=== PATIENT | male | born 1950 | race Caucasian/White ===

== ENCOUNTER 2019-03-18 22:21 | Inpatient (IN) | payer MEDICARE ==
[~2019-03-18] VITALS: Ht 188 cm; Wt 99.5 kg
[2019-03-18 23:10] LABS: BASO % 0 % (0-3); EOS % 0 % (0-3); HEMATOCRIT 49.6 % (39.0-53.0); HEMOGLOBIN 17.1 g/dL (13.0-17.5); LYMPH # 1.2 x10^3/uL (1.0-4.8); LYMPH % 9 % (24-48); MEAN CORPUSCULAR HEMOGLOBIN 32 pg (25-35); MEAN CORPUSCULAR HGB CONC 35 g/dL (31-37); MEAN CORPUSCULAR VOLUME 92 fL (79-100); MONO # 1.5 x10^3/uL (0.0-1.1); MONO % 12 % (0-9); NEUT # 9.9 x10^3/uL (1.8-7.7); NEUT % 78 % (31-73); PLATELET COUNT 172 x10^3/uL (140-400); RED CELL DISTRIBUTION WIDTH 13.1 % (11.5-14.5); WHITE BLOOD COUNT 12.6 x10^3/uL (4.0-11.0)
[2019-03-18 23:19] LABS: CALCIUM 9.5 mg/dL (8.5-10.1); CREATININE 1.1 mg/dL (0.7-1.3); GFR 66.2; POTASSIUM 4.5 mmol/L (3.5-5.1)
[2019-03-18 23:25] LABS: ALBUMIN/GLOBULIN RATIO 0.9 (1.0-1.7); TOTAL PROTEIN 8.4 g/dL (6.4-8.2)
[2019-03-19] MEDS ORDERED: LIDO:MAALOX 1:1 20 ML SINGLE DOSE. SWSW ONE
[2019-03-19] MEDS ORDERED: FAMOTIDINE 20 MG/2 ML VIAL IVP ONE
--- NOTE | 2019-03-19 00:01 | PHYS DOC ---
Adult General Chief Complaint Chief Complaint: CHEST PAIN HPI HPI Patient is a 69 year old male presents with epigastric pain/burning radiating to bilateral shoulders and back of neck. Symptom onset was 16 hours prior to ED arrival. Patient reports mild dyspnea and nausea. Denies abdominal pain.. Chest pressure and dyspnea her mildly improved by leaning forward and worse with exertion. Patient took Tums with Pepto-Bismol without relief. Denies back pain, cough, fever chills, vomiting, sweats. No leg pain or swelling. No other acute symptoms or complaints.[] Review of Systems Review of Systems Review symptoms reviewed. All other review symptoms are negative. All other systems were reviewed and found to be within normal limits, except as documented in this note. Current Medications Current Medications Current Medications Medications (Trade) Dose Ordered Sig/Gabriel Start Time Stop Time Status Last Admin Dose Admin Famotidine (Pepcid Vial) 20 mg 1X ONCE 03/19/19 00:00 03/19/19 00:01 DC 03/19/19 00:24 20 MG Multi-Ingredient Mouthwash/Gargle (Gi Cocktail) 20 ml 1X ONCE 03/19/19 00:00 03/19/19 00:01 DC 03/19/19 00:23 20 ML Nitroglycerin (Nitrostat) 0.4 mg PRN Q5MIN PRN 03/19/19 00:45 03/19/19 00:44 0.4 MG Ondansetron HCl (Zofran) 4 mg STK-MED ONCE 03/19/19 01:08 03/19/19 01:09 MS Allergies Allergies Allergies Coded Allergies Type Severity Reaction Last Updated Verified No Known Drug Allergies 03/18/19 No Physical Exam Physical Exam Constitutional: Well developed, well nourished, no acute distress, non-toxic appearance. [] HENT: Normocephalic, atraumatic, bilateral external ears normal, oropharynx moist, no oral exudates, nose normal. [] Eyes: PERRLA, EOMI, conjunctiva normal, no discharge. [] Neck: Normal range of motion, no tenderness, supple, no stridor. [] Cardiovascular:Heart rate regular rhythm, no murmur [] Lungs & Thorax: Bilateral breath sounds clear to auscultation [] Abdomen: Bowel sounds normal, soft, no tenderness. [] Skin: Warm, dry, no erythema, no rash. [] Back: No tenderness, no CVA tenderness. [] Extremities: No tenderness, no cyanosis, no clubbing, ROM intact, no edema. [] Neurologic: Alert and oriented X 3, normal motor function, normal sensory function, no focal deficits noted. [] Psychologic: Affect normal, judgement normal, mood normal. [] Current Patient Data Vital Signs Vital Signs Date Time Temp Pulse Resp B/P (MAP) Pulse Ox O2 Delivery O2 Flow Rate FiO2 03/19/19 00:44 99 137/89 03/18/19 22:25 98.7 18 98 Room Air 98.7 Lab Values Laboratory Tests Test 03/18/19 22:45 03/19/19 00:01 White Blood Count 12.6 x10^3/uL (4.0-11.0) H Red Blood Count 5.40 x10^6/uL (4.30-5.70) Hemoglobin 17.1 g/dL (13.0-17.5) Hematocrit 49.6 % (39.0-53.0) Mean Corpuscular Volume 92 fL (79-100) Mean Corpuscular Hemoglobin 32 pg (25-35) Mean Corpuscular Hemoglobin Concent 35 g/dL (31-37) Red Cell Distribution Width 13.1 % (11.5-14.5) Platelet Count 172 x10^3/uL (140-400) Neutrophils (%) (Auto) 78 % (31-73) H Lymphocytes (%) (Auto) 9 % (24-48) L Monocytes (%) (Auto) 12 % (0-9) H Eosinophils (%) (Auto) 0 % (0-3) Basophils (%) (Auto) 0 % (0-3) Neutrophils # (Auto) 9.9 x10^3/uL (1.8-7.7) H Lymphocytes # (Auto) 1.2 x10^3/uL (1.0-4.8) Monocytes # (Auto) 1.5 x10^3/uL (0.0-1.1) H Eosinophils # (Auto) 0.0 x10^3/uL (0.0-0.7) Basophils # (Auto) 0.0 x10^3/uL (0.0-0.2) Sodium Level 137 mmol/L (136-145) Potassium Level 4.5 mmol/L (3.5-5.1) Chloride Level 105 mmol/L (98-107) Carbon Dioxide Level 23 mmol/L (21-32) Anion Gap 9 (6-14) Blood Urea Nitrogen 14 mg/dL (8-26) Creatinine 1.1 mg/dL (0.7-1.3) Estimated GFR (Cockcroft-Gault) 66.2 BUN/Creatinine Ratio 13 (6-20) Glucose Level 115 mg/dL (70-99) H Calcium Level 9.5 mg/dL (8.5-10.1) Total Bilirubin 1.0 mg/dL (0.2-1.0) Aspartate Amino Transferase (AST) 33 U/L (15-37) Alanine Aminotransferase (ALT) 39 U/L (16-63) Alkaline Phosphatase 75 U/L (46-116) Troponin I Quantitative < 0.017 ng/mL (0.000-0.055) Total Protein 8.4 g/dL (6.4-8.2) H Albumin 4.0 g/dL (3.4-5.0) Albumin/Globulin Ratio 0.9 (1.0-1.7) L D-Dimer (Juana) 0.35 ug/mlFEU (0.00-0.50) Thyroid Stimulating Hormone (TSH) 1.961 uIU/mL (0.358-3.74) Laboratory Tests 03/18/19 22:45 Laboratory Tests 03/18/19 22:45 EKG EKG [EKG: Sinus tach, nonspecific ST-T wave changes, QTC 414.] Radiology/Procedures Radiology/Procedures [Chest x-ray: No acute cardiopulmonary disease on pulmonary ED review] Course & Med Decision Making Course & Med Decision Making Pertinent Labs and Imaging studies reviewed. (See chart for details) [Atypical chest pain. EKG, Labs, imaging reviewed. No relief with GI cocktail, near complete relief with glycerin. Full strength ASA CLOTH COLORER. Troponin negative. Will admit to hospital further evaluation and monitoring] Dragon Disclaimer Dragon Disclaimer This electronic medical record was generated, in whole or in part, using a voice recognition dictation system. Departure Departure Impression: Primary Impression: Chest pain Disposition: ADMITTED INPATIENT Admitting Physician: Ed Hoang Condition: IMPROVED Referrals: ED HOANG MD (PCP) MARBELLA OLIVARES DO Mar 19, 2019 00:01
[2019-03-19] MEDS ORDERED: NITROGLYCERIN SUBLINGUAL 0.4 MG BOTTLE OF 25. SL PRN ×2 (00:45→01:30)
[2019-03-19] MEDS ORDERED: ONDANSETRON PF 4 MG/2 ML VIAL. ONE (01:08)
[2019-03-19] MEDS ORDERED: ONDANSETRON PF 4 MG/2 ML VIAL. IV ONE (01:15)
[2019-03-19] MEDS ORDERED: ONDANSETRON PF 4 MG/2 ML VIAL. IV PRN ×2 (01:30→09:00)
--- NOTE | 2019-03-19 01:55 | RAD ---
AP portable chest radiograph 03/19/2019 Clinical History: Chest pain. An AP erect portable digital radiograph of the chest was obtained. No previous studies are available for comparison. The cardiac silhouette is mildly enlarged. The thoracic aorta is tortuous. No acute pulmonary infiltrate is seen. No pleural effusion or pneumothorax is noted. Degenerative changes are seen involving the thoracic spine and both shoulders. IMPRESSION: No acute abnormality is seen. Electronically signed by: Yovany Randle MD (03/19/2019 1:52 AM) [facility]
--- NOTE | 2019-03-19 02:30 | NUR ---
The patient, PARKER POOLE, 69 y/o, M admitted by ED HOANG MD, was given written information regarding hospital policies, unit procedures and contact persons. ORIENTED TO POC, WENT OVER HOME MEDS. ALL OVER THE COUNTER. BOOKLET GIVEN TO PT, WENT OVER HOUSESMITH SHEET AND MED SHE WITH ADVERS REACTIONS. Valuables were checked and IN EMR. [facility]
[2019-03-19 03:00] VITALS: BP 119/87
[2019-03-19 07:00] VITALS: BP 132/85
[2019-03-19] MEDS: FAMOTIDINE 20 MG/2 ML VIAL IVP SCH ×2 (09:00→21:54)
[2019-03-19 11:00] VITALS: BP 125/80
--- NOTE | 2019-03-19 11:58 | EKG ---
[facility] [address] [place] [address] Test Date: 2019-03-18 Test Time: 22:30:07 Pat Name: PARKER POOLE Department: Room: Gender: M Recreation Establishment Manager: : 1950 Requested By: MARBELLA OLIVARES Order Number: [id number] Reading MD: Measurements Intervals [place] Rate: 111 P: 31 MO: 136 QRS: -3 QRSD: 84 T: 21 QT: 302 QTc: 413 Interpretive Statements SINUS TACHYCARDIA LEFTWARD AXIS QRS(T) CONTOUR ABNORMALITY CONSISTENT WITH INFERIOR INFARCT PROBABLY OLD ABNORMAL ECG No previous ECG available for comparison
--- NOTE | 2019-03-19 12:51 | PDOC ---
Provider Note Provider Note Patient seen. Combined History and Physical and discharge summary dictated. See dictation#[id number] DE HOANG MD Mar 19, 2019 12:51
--- NOTE | 2019-03-19 12:53 | DISCH ---
DISCHARGE INSTRUCTIONS Condition on Discharge Condition on Discharge: Stable Activity After Discharge Activity Instructions for Disc: No restrictions Diet after Discharge Diet after Discharge: Regular Contacting the DRBernardo after DC Call your doctor for: Concerns you may have Follow-Up Follow up with: Dr. ED Hoang in 5 days ED HOANG MD Mar 19, 2019 12:52
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
[2019-03-19 15:00] VITALS: BP 121/79
[2019-03-19 19:33] VITALS: BP 121/81
[2019-03-19 23:00] VITALS: BP 118/77
[2019-03-20 03:57] LABS: BASO % 0 % (0-3); EOS # 0.1 x10^3/uL (0.0-0.7); EOS % 1 % (0-3); HEMATOCRIT 46.3 % (39.0-53.0); HEMOGLOBIN 16.1 g/dL (13.0-17.5); LYMPH # 2.1 x10^3/uL (1.0-4.8); LYMPH % 20 % (24-48); MEAN CORPUSCULAR HEMOGLOBIN 32 pg (25-35); MEAN CORPUSCULAR HGB CONC 35 g/dL (31-37); MEAN CORPUSCULAR VOLUME 93 fL (79-100); MONO # 1.3 x10^3/uL (0.0-1.1); MONO % 13 % (0-9); NEUT # 6.8 x10^3/uL (1.8-7.7); NEUT % 66 % (31-73); PLATELET COUNT 150 x10^3/uL (140-400); RED BLOOD COUNT 5.01 x10^6/uL (4.30-5.70); RED CELL DISTRIBUTION WIDTH 13.1 % (11.5-14.5); WHITE BLOOD COUNT 10.3 x10^3/uL (4.0-11.0)
[2019-03-20 04:15] LABS: CALCIUM 8.9 mg/dL (8.5-10.1); CREATININE 1.1 mg/dL (0.7-1.3); GFR 66.2
[2019-03-20 07:00] VITALS: BP 131/86
[2019-03-20] MEDS: FAMOTIDINE 20 MG/2 ML VIAL IVP SCH (09:10)
--- NOTE | 2019-03-20 10:13 | PDOC ---
IM PROGRESS NOTES- Subjective Subjective No complaints of chest pains, palpitations or dyspnea. Has occasional shoulder pain. When patient was urinating this morning he had an episode of her cardiac arrhythmia with a heart rate of 175-1 80/m for about 2 minutes. Patient was asymptomatic. Objective Vitals/I&O Vital Signs Date Time Temp Pulse Resp B/P (MAP) Pulse Ox O2 Delivery O2 Flow Rate FiO2 03/20/19 07:00 96.8 80 16 131/86 (101) 94 Room Air 96.8 I & O 03/19/19 03/19/19 03/20/19 15:00 23:00 07:00 Intake Total 480 ml Output Total 450 ml 1300 ml Balance -450 ml 480 ml -1300 ml Physical Exam Physical Exam General appearance - alert,well appearing, and in no distress and oriented to person, place, and time Mental Status - alert, oriented to person, place, and time, affect appropriate to mood Head - normal Chest - clear to auscultation, no wheezes, rales or rhonchi, symmetric air entry Heart - S1 and S2 normal Abdomen - soft, nontender, nondistended, no masses or organomegaly Neurological - alert and oriented Musculoskeletal - no muscular tenderness noted Extremities - no pedal edema Skin - warm and dry Labs Laboratory Tests Test 03/20/19 03:40 White Blood Count 10.3 x10^3/uL (4.0-11.0) Red Blood Count 5.01 x10^6/uL (4.30-5.70) Hemoglobin 16.1 g/dL (13.0-17.5) Hematocrit 46.3 % (39.0-53.0) Mean Corpuscular Volume 93 fL (79-100) Mean Corpuscular Hemoglobin 32 pg (25-35) Mean Corpuscular Hemoglobin Concent 35 g/dL (31-37) Red Cell Distribution Width 13.1 % (11.5-14.5) Platelet Count 150 x10^3/uL (140-400) Neutrophils (%) (Auto) 66 % (31-73) Lymphocytes (%) (Auto) 20 % (24-48) L Monocytes (%) (Auto) 13 % (0-9) H Eosinophils (%) (Auto) 1 % (0-3) Basophils (%) (Auto) 0 % (0-3) Neutrophils # (Auto) 6.8 x10^3/uL (1.8-7.7) Lymphocytes # (Auto) 2.1 x10^3/uL (1.0-4.8) Monocytes # (Auto) 1.3 x10^3/uL (0.0-1.1) H Eosinophils # (Auto) 0.1 x10^3/uL (0.0-0.7) Basophils # (Auto) 0.0 x10^3/uL (0.0-0.2) Sodium Level 137 mmol/L (136-145) Potassium Level 4.0 mmol/L (3.5-5.1) Chloride Level 103 mmol/L (98-107) Carbon Dioxide Level 23 mmol/L (21-32) Anion Gap 11 (6-14) Blood Urea Nitrogen 13 mg/dL (8-26) Creatinine 1.1 mg/dL (0.7-1.3) Estimated GFR (Cockcroft-Gault) 66.2 Glucose Level 115 mg/dL (70-99) H Calcium Level 8.9 mg/dL (8.5-10.1) Laboratory Tests 03/20/19 03:40 Laboratory Tests 03/20/19 03:40 Assessment Assessment 1. Chest pain, musculoskeletal. 2. Leukocytosis, etiology not clear. The patient also had low-grade fever, but clinically, no evidence of infection. We will continue to monitor. The patient was observed in telemetry unit. Serial EKG and enzymes are negative so far. Heel Caser has been consulted. The patient was kept n.p.o. to see if there would be any further cardiac workup. The patient was not discharged yesterday. Staff will check with the opto mechanical technician about the plans for today. Patient is nothing by mouth for possible stress test. Cardiac arrhythmia monitor. Staff will call me with the further plans after the opto mechanical technician makes rounds. Plan Plan For more details regarding further plans, please refer to the orders. ED HOANG MD Mar 20, 2019 10:13
--- NOTE | 2019-03-20 10:50 | PDOC ---
CARDIO Progress Notes Date and Time Date of Service 03/20/19 Time of Evaluation 1045 Subjective Subjective: No Chest Pain, No shortness of breath Vitals Vitals Vital Signs Date Time Temp Pulse Resp B/P (MAP) Pulse Ox O2 Delivery O2 Flow Rate FiO2 03/20/19 07:00 96.8 80 16 131/86 (101) 94 Room Air 96.8 Weight Weight [ ] Input and Output Intake and Output Intake and Output 03/20/19 06:59 Intake Total 480 ml Output Total 1750 ml Balance -1270 ml Intake Oral 480 ml Output Urine Total 1750 ml Laboratory Labs Laboratory Tests Test 03/20/19 03:40 White Blood Count 10.3 x10^3/uL (4.0-11.0) Red Blood Count 5.01 x10^6/uL (4.30-5.70) Hemoglobin 16.1 g/dL (13.0-17.5) Hematocrit 46.3 % (39.0-53.0) Mean Corpuscular Volume 93 fL (79-100) Mean Corpuscular Hemoglobin 32 pg (25-35) Mean Corpuscular Hemoglobin Concent 35 g/dL (31-37) Red Cell Distribution Width 13.1 % (11.5-14.5) Platelet Count 150 x10^3/uL (140-400) Neutrophils (%) (Auto) 66 % (31-73) Lymphocytes (%) (Auto) 20 % (24-48) Monocytes (%) (Auto) 13 % (0-9) Eosinophils (%) (Auto) 1 % (0-3) Basophils (%) (Auto) 0 % (0-3) Neutrophils # (Auto) 6.8 x10^3/uL (1.8-7.7) Lymphocytes # (Auto) 2.1 x10^3/uL (1.0-4.8) Monocytes # (Auto) 1.3 x10^3/uL (0.0-1.1) Eosinophils # (Auto) 0.1 x10^3/uL (0.0-0.7) Basophils # (Auto) 0.0 x10^3/uL (0.0-0.2) Sodium Level 137 mmol/L (136-145) Potassium Level 4.0 mmol/L (3.5-5.1) Chloride Level 103 mmol/L (98-107) Carbon Dioxide Level 23 mmol/L (21-32) Anion Gap 11 (6-14) Blood Urea Nitrogen 13 mg/dL (8-26) Creatinine 1.1 mg/dL (0.7-1.3) Estimated GFR (Cockcroft-Gault) 66.2 Glucose Level 115 mg/dL (70-99) Calcium Level 8.9 mg/dL (8.5-10.1) Physical Exam HEENT: Neck Supple W Full Motion Chest: Symmetric LUNGS: Clear to Auscultation Heart: S1S2, RRR Abdomen: Soft N/T Extremities: No Edema Neurology: alert, oriented, follow commands Assessment Assessment 1. Chest, left shoulder pain; AMI ruled out. 2. Hypertension; controlled 3. Tachycardia; brief bursts of NSVT noted on tele Recommendations Add low-dose metoprolol for rate control Will arrange for outpatient event monitor Follow up in our office with Dr. Jhaveri as scheduled D/w primary metal products viewer. Consider further workup with echo, stress testing at time of followup. May discharge from a CV standpoint RO MILES APRN Mar 20, 2019 10:50
[2019-03-20 11:00] VITALS: BP 117/77
[2019-03-20] MEDS ORDERED: METOPROLOL TART IMMED RELEASE 25 MG TABLET. PO SCH (11:00)
--- NOTE | 2019-03-20 14:13 | NUR ---
SS following for discharge planning. SS reviewed pt chart. Pt is from home and is currently on room air. Discharge order on the chart for home with self care.
[2019-03-20 15:00] VITALS: BP 129/78
[2019-03-20] MEDS ORDERED: ASPI81TA50 PO (16:05)
[2019-03-20] MEDS ORDERED: METO25TA4 PO (16:05)
--- NOTE | 2019-03-20 16:37 | NUR ---
Discharge Note: PARKER POOLE [place] [address] [place] [address] Discharge instructions and discharge home medications reviewed with Patient and a copy given. All questions have been answered and understanding verbalized. The following instructions and handouts were given: metoprolol info, tachy info, chest pain info, discharge instructions. Discontinued lines and drains: Peripheral IV intact. Patient discharged to Home or Self Care with Friend via Wheelchair at 1637.
== END 2019-03-20 16:37 | disposition home or self-care (01) | DRG 313 ==
LOC: ER 22:21 → 2 SOUTH 03-19 01:30
PROVIDERS: ADMIT Internal Medicine; ATTEND Internal Medicine
DX: R07.89 Other chest pain (principal); I47.2 Ventricular tachycardia; I10 Essential (primary) hypertension; Z82.49 Family history of ischemic heart disease and other diseases of the circulatory system; Z83.3 Family history of diabetes mellitus
CPT/HCPCS: 36415; 71045; 80048; 80053; 84443; 84484; 85025; 85379; 93005; 96374; 96375; J2405; J3490; 99285-25

== ENCOUNTER → 2019-05-01 | Outpatient (CLI) | payer MEDICARE ==
[~2019-05-01] MED LIST: ASPI81TA50 PO; METO25TA4 PO
--- NOTE | 2019-05-01 13:44 | RAD ---
MR#: [id number] Date of Study: 05/01/2019 Ordering Physician: SWATHI HADDAD, Referring Physician: PRINCESS ESTEVEZ Tech: Alexa Prather, RT (R) (N) APPROVED REPORT Test Type: Exercise Stress Nurse/Tech: Jill Khalil RN Test Indications: Dyspnea on exertion, syncope Cardiac History: asthma, Tachycardia Medications: See Electronic Medical Record Medical History: See Electronic Medical Record Resting ECG: SR Resting Heart Rate: 70 bpm Resting Blood Pressure: 129/73mmHg Pretest Chest Pain: None Nurse/Tech Notes Lungs CTA, S1S2 Consent: The procedure was explained to the patient in lay terms. Informed consent was witnessed. Roshan eout was entered into [employer]. History and Stress Test performed by Jill Khalil RN Stress Symptoms Dyspnea POST EXERCISE Reason for Termination: Reached target heart rate Max HR: 132 bpm 88% of Maximum Predicted HR: 150 bpm Exercise duration: 7:10 min:sec, 3 Stage Max Blood Pressure: 135/70mmHg Blood Pressure response to exercise: Normal blood pressure response during stress. Heart Rate response to exercise: normal response Chest Pain: No. Arrhythmia: No. PAC ST Change: No. INTERPRETATION Stress EKG Conclusion: The resting EKG shows a sinus rhythm with mild nonspecific ST-T wave changes. The stress EKG shows no significant changes from baseline. No EKG evidence of stress-induced ischemia. Imaging Protocol IMAGE PROTOCOL: Rest Tc-99m/stress Tc-99m 1 day Rest: Stress: Viability: Radiopharm.Tc99m YfveelngnEh84q Sestamibi Jwuo73lCc 33mCi Duration 13min. 13min. Img Date 05/01/2019 05/01/2019 Inj-Img Tygd25nzq. 60min. Rest Admin Site:IV - Right HandAdministrator:LASHANDA Salgado Stress Admin Site: IV - Right HandAdministrator: BRENDEN Parker, ARRT (R)(N) STRESS DATA End Diast. Vol.115.0mlLVEDV index BSA51.0ml End Syst. Vol.39.0mlLVESV index BSA17.0ml Myocardial Gxdc395.0gEject. Teuyzgru63.0% Stress Scores Regional WT0.00Summed WT1.00 Regional WM0.00Summed WM6.00 LV Perfusion The stress scans showed mild apical thinning. The rest scans showed mild apical thinning. Nuclear imaging shows no reversible ischemia. Nuclear imaging shows minimal fixed apical thinning most consistent with an technical artifact. Wall Motion F ventricular systolic function is intact with no regional wall motion abnormalities and an ejection fraction of 66%. LV Perf. Quant 17 Seg. SSS0.00 17 Seg. SRS2.00 17 Seg. SDS0.00 Stress Defect Extent (% LAD)0.00Rest Defect Extent (% LAD)1.90Rev. Defect Extent (% LAD)0.00 Stress Defect Extent (% LCX) 0.00Rest Defect Extent (% LCX)0.00Rev. Defect Extent (% LCX)0.00 Stress Defect Extent (% RCA)0.00Rest Defect Extent (% RCA)0.00Rev. Defect Extent (% RCA)0.00 Stress Defect Extent (% SELINA)0.00Rest Defect Extent (% SELINA)2.40Rev. Defect Extent (% SELINA)0.00 Conclusion 1. Good exercise tolerance. 2. No chest pain with exertion. 3. Nuclear imaging shows no reversible ischemia 4. Nuclear imaging shows no clear previous infarct. 5. Normal left ventricular systolic function with no regional wall motion abnormalities and an ejecti on fraction of 66%. 6. Moderately low risk treadmill nuclear stress test. Signed by : Swathi Haddad MD Electronically Approved : 05/01/2019 13:43:24
== END | disposition home or self-care (01) ==
LOC: NM 09:05
PROVIDERS: ATTEND Internal Medicine Cardiovascular Disease
DX: R07.9 Chest pain, unspecified (principal); R06.00 Dyspnea, unspecified; J45.909 Unspecified asthma, uncomplicated; Z86.79 Personal history of other diseases of the circulatory system
CPT/HCPCS: 78452; 93017; A9500

== ENCOUNTER → 2019-05-25 | Outpatient (CLI) | payer MEDICARE, OTHER ==
--- NOTE | 2019-05-25 16:12 | CARD ---
MR#: [id number] Date of Study: 05/25/2019 Ordering Physician: SWATHI DELUNA, Referring Physician: SWATHI DELUNA, Tech: Lisa Carmona MARTIN APPROVED REPORT EXAM: Two-dimensional and M-mode echocardiogram with Doppler and color Doppler. Other Information Quality : AverageHR: 60bpm Rhythm : NSR INDICATION Murmur 2D DIMENSIONS RVDd3.4 (2.9-3.5cm)Left Atrium(2D)3.8 (1.6-4.0cm) IVSd1.0 (0.7-1.1cm)Aortic Root(2D)3.0 (2.0-3.7cm) LVDd5.6 (3.9-5.9cm)LVOT Diameter2.3 (1.8-2.4cm) PWd1.0 (0.7-1.1cm)LVDs3.8 (2.5-4.0cm) FS (%) 31.5 %SV90.2 ml LVEF(%)55.0 (>50%) M-Mode DIMENSIONS Left Atrium(MM)3.51 (2.5-4.0cm)Aortic Root3.89 (2.2-3.7cm) Aortic Valve AoV Peak Dexter.102.6cm/sAoV VTI21.9cm AO Peak GR.4.2mmHgLVOT Peak Dexter.68.4cm/s AO Mean GR.2mmHgAVA (VMAX)2.77cm2 KJ (VTI)2.80cm2 Mitral Valve MV E Fmkhzsbv94.8cm/sMV DECEL UVRP816qs MV A Crbvvpbd75.0cm/sE/A Ratio0.9 Pulmonary Valve PV Peak Jdsxrksq14.4cm/s LEFT VENTRICLE The left ventricle is normal size. There is normal left ventricular wall thickness. Left ventricle sy stolic function is normal. The Ejection Fraction is 50-55%. There is normal LV segmental wall motion. Transmitral Doppler flow pattern is Grade I-abnormal relaxation pattern. RIGHT VENTRICLE The right ventricle is normal size. There is normal right ventricular wall thickness. The right ventr icular systolic function is normal. ATRIA The left atrium size is normal. The right atrium size is normal. The interatrial septum is intact wit h no evidence for an atrial septal defect or patent foramen ovale as noted on 2-D or Doppler imaging. AORTIC VALVE The aortic valve is normal in structure and function. The aortic valve is trileaflet. Doppler and Col or Flow revealed no significant aortic regurgitation. There is no significant aortic valvular stenosi s. There is no aortic valvular vegetation. MITRAL VALVE The mitral valve is normal in structure and function. There is no evidence of mitral valve prolapse. There is no mitral valve stenosis. Doppler and Color Flow revealed no mitral valve regurgitation note d. TRICUSPID VALVE The tricuspid valve is normal in structure and function. Doppler and Color Flow revealed no tricuspid valve regurgitation noted. There is no tricuspid valve prolapse or vegetation. There is no tricuspid valve stenosis. PULMONIC VALVE Doppler and Color Flow revealed trace pulmonic valvular regurgitation. There is no pulmonic valvular stenosis. GREAT VESSELS The aortic root is normal in size. The ascending aorta is Mildly dilated at 4.0cm. The IVC is normal in size and collapses >50% with inspiration. PERICARDIAL EFFUSION There is no evidence of significant pericardial effusion. Critical Notification Critical Value: No <Conclusion> Left ventricle systolic function is normal. The Ejection Fraction is 50-55%. There is normal LV segmental wall motion. The ascending aorta is Mildly dilated at 4.0cm. Signed by : Yobani Ayala, Electronically Approved : 05/25/2019 16:12:10
== END | disposition home or self-care (01) ==
LOC: ECHO 15:14
PROVIDERS: ATTEND Internal Medicine Cardiovascular Disease
DX: R01.1 Cardiac murmur, unspecified (principal)
CPT/HCPCS: 93306